=== PATIENT | female | born 2000 | race Caucasian/White ===

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

== ENCOUNTER 2019-03-08 14:28 | Emergency (ER) | payer MEDICAID ==
[~2019-03-08] VITALS: Ht 160 cm; Wt 68.5 kg
[~2019-03-08 14:28] MED LIST changes: +HYDR-4011 PO; +NAPR-985 PO
[2019-03-08 14:34] VITALS: BP 133/67; PULSE 81; RESP 15; Ht 160 cm; Wt 68.5 kg
[2019-03-08] MEDS ORDERED: LIDOCAINE 1% (MPF) 5 ML VIAL INFIL ONE (15:00)
[2019-03-08] MEDS ORDERED: IBUPROFEN 600 MG TAB PO ONE (15:00)
== END 2019-03-08 15:57 | disposition home or self-care (01) ==
LOC: FTE 14:28
DX: L60.0 Ingrowing nail (principal); J45.909 Unspecified asthma, uncomplicated
CPT/HCPCS: 11765; 81025; Z7502; Z7610